=== PATIENT | female | born 1995 | race Two or more races ===

== ENCOUNTER 2025-06-16 18:34 | Emergency (ER) | payer MEDICAID, OTHER ==
[~2025-06-16] VITALS: Ht 157.5 cm; Wt 65.8 kg
[2025-06-16 20:19] LABS: APPEARANCE,URINE CLEAR (CLEAR); BLOOD, URINE TRACE-INTA Ery/uL (NEGATIVE); LEUKOCYTE ESTERASE ,URINE 1+ (NEGATIVE); NITRITE, URINE NEGATIVE (NEGATIVE); UGLUCOSE NEGATIVE (NEGATIVE)
[2025-06-16] MEDS ORDERED: FAMOTIDINE/PF INJ 20 MG/2 ML VIAL IV ONE (20:19)
[2025-06-16] MEDS ORDERED: SUCRALFATE 1 G/10 ML UDC ONE (20:19)
[2025-06-16] MEDS ORDERED: PANTOPRAZOLE 40 MG VIAL ONE (20:19)
[2025-06-16 20:21] LABS: PREGNANCY TEST URINE QUAL NEGATIVE (NEGATIVE)
[2025-06-16 20:31] LABS: ADD URINE CULTURE YES
[2025-06-16 20:36] LABS: PLATELET COUNT (AUTO) 214 K/uL (150-450); RED BLOOD CELL COUNT(AUTO) 4.12 MIL/uL (4.0-5.2); RED CELL DISTRIBUTION WIDTH 13.3 % (11.5-15.0); WHITE BLOOD COUNT (AUTO) 7.4 K/uL (4.3-11.0)
[2025-06-16] MEDS: FAMOTIDINE/PF INJ 20 MG/2 ML VIAL IV ONE (20:38)
[2025-06-16] MEDS: IV NS 0.9% 1,000 ML BAG IV ONE (20:38)
[2025-06-16] MEDS: SUCRALFATE 1 G TABLET PO ONE (20:39)
[2025-06-16] MEDS: PANTOPRAZOLE 40 MG VIAL IV ONE (20:39)
[2025-06-16 21:02] LABS: ASPARTATE AMINOTRANSFERASE 10.0 U/L (15-37); CALCIUM, SERUM 9.2 mg/dL (8.5-10.1); CREATININE 0.7 mg/dL (0.6-1.3); SODIUM SERUM 139.0 mmol/L (136-145); TOTAL PROTEIN, SERUM 8.0 g/dL (6.4-8.2); UREA NITROGEN, BLOOD 9.0 mg/dL (7-18)
[2025-06-16] MEDS ORDERED: SUCR1TAB31 PO (21:58)
[2025-06-16] MEDS ORDERED: PANT40TA49 PO (21:58)
[2025-06-16] MEDS ORDERED: FAMO20TA80 PO (21:58)
[2025-06-16 22:13] VITALS: BP 114/78; TEMP 98.3; O2SAT 99
== END 2025-06-16 22:14 | disposition home or self-care (01) ==
LOC: ER 18:34
DX: K29.70 Gastritis, unspecified, without bleeding (principal); Z88.0 Allergy status to penicillin; Z60.2 Problems related to living alone
CPT/HCPCS: 99284; 74176; 96374; 96361; 96375; 85025; 87086; 83690; 84703; 81001; 36415; 80053; J1308; J7030; J2470